=== PATIENT | female | born 1950 | race Caucasian/White ===

== ENCOUNTER 2024-04-22 13:21 | Emergency (ER) | payer OTHER ==
[~2024-04-22] VITALS: Ht 160 cm; Wt 65.0 kg
[2024-04-22] MEDS: LIDOCAINE W/ EPINEPHRINE 2% INJ 20ML VIAL IJ ONE (13:45)
--- NOTE | 2024-04-22 14:02 | ED.PDOC ---
Shabnamt. trauma (HPI) HPI Comments 73 y.o female presents to the ED via EMS for an evaluation of a mechanical fall. EMS reports patient was at [employer], tripped over a sprinkler and fell on cement fab outside. Patient presents with a 6cm laceration to the right upper eyebrow and bilateral shoulder pain. Patient has no active bleeding, discharge, or numbness. Patient denies any LOC, headaches, nausea, vomiting or dizziness. Patient is not up to date with tetanus vaccine. Chief Complaint: Laceration Time Seen by MD: 13:35 Primary Care Provider: CARLOS ALBERTO Reviewed notes: Nurses Notes, L[employer] And Cranes Inspector Notes, Medications, Allergies Allergies: Coded Allergies: NO KNOWN ALLERGIES (Unverified , 08/09/15) Information Source: Patient, Relative (Child) Mode of Arrival: EMS Severity: Moderate Timing: Hours Duration: Since onset Location: (L) Shoulder, (R) Shoulder Location of laceration: Face Mechanism: Fall Associated signs and symtoms: Other Past Medical History PAST MEDICAL HISTORY: Denies Surgical History: Denies all surgeries CONTACT CENTER ANALYST History: No Pertinent CONTACT CENTER ANALYST History Family History Family History: Unknown Social History Smoker: Non-Smoker Alcohol: Denies ETOH Use Drugs: Denies Drug Use Lives In: Home Constitutional: denies: chills, diaphoresis, fatigue, fever, malaise, sweats, weakness, others EENTM: denies: blurred vision, double vision, ear bleeding, ear discharge, ear drainage, ear pain, ear ringing, eye pain, eye redness, hearing loss, mouth pain, mouth swelling, nasal discharge, nose bleeding, nose congestion, nose pain, photophobia, tearing, throat pain, throat swelling, voice changes, others Respiratory: denies: cough, hemoptysis, orthopnea, SOB at rest, shortness of breath, SOB with excertion, stridor, wheezing, others Cardiovascular: denies: chest pain, dizzy spells, diaphoresis, Dyspnea on exertion, edema, irregular heart beat, left arm pain, lightheadedness, palpitations, PND, syncope, others Gastrointestinal: denies: abdomen distended, abdominal pain, blood streaked bowels, constipated, diarrhea, dysphagia, difficulty swallowing, hematemesis, melena, nausea, poor appetite, poor fluid intake, rectal bleeding, rectal pain, vomiting, others Genitourinary: denies: abnormal vagina bleeding, burning, dyspareunia, dysuria, flank pain, frequency, hematuria, incontinence, pain, , vagina discharge, urgency, others Neurological: denies: dizziness, fainting, headache, left sided numbness, left sided weakness, numbness, paresthesia, pre-existing deficit, right sided numbness, right sided weakness, seizure, speech problems, tingling, tremors, weakness, others Musculoskeletal: reports: others (bilateral upper shoulder blade pain ); denies: back pain, gout, joint pain, joint swelling, muscle pain, muscle stiffness, neck pain Integumetry: reports: laceration (right upper eyebrow ); denies: bruises, change in color, change in hair/nails, dryness, lesions, lumps, rash, wounds, o thers Allergic/Immunocompromised: denies: Difficulty Healing, Frequent Infections, Hives, Itching, others Hematologic/Lymphatic: denies: anemia, blood clots, easy bleeding, easy bruising, swollen glands, others Endocrine: denies: excessive hunger, excessive sweating, excessive thirst, excessive urination, flushing, intolerance to cold, intolerance to heat, unexplained weight gain, unexplained weight loss, others Psychiatric: denies: anxiety, bipolar disorder, depression, hopeless, panic disorder, schizophrenia, sleepless, suicidal, others All Other Systems: Reviewed and Negative Physical Exam General Appearance: No Apparent Distress, Normal HEENT: Normal ENT Inspection, Pharynx Normal, TMs Normal Neck: Full Range of Motion, Non-Tender, Normal, Normal Inspection Respiratory: Chest Non-Tender, Lungs Clear, No Accessory Muscle Use, No Respiratory Distress, Normal Breath Sounds Cardiovascular: No Edema, No JVD, No Murmur, No Gallop, Normal Peripheral Pulses, Regular Rate/Rhythm Breast Exam: Deferred Gastrointestinal: No Organomegaly, Non Tender, No Pulsatile Mass, Normal Bowel Sounds, Soft Genitalia: Deferred Pelvic: Deferred Rectal: Deferred Extremities: No calf tenderness, Normal capillary refill, Normal inspection, Normal range of motion, Non-tender, No pedal edema Musculoskeletal : Location: Bilateral Extremity Location: Shoulder (shoulder blade tenderness. NO deformity, swelling. ) Apperance: Normal Neurologic: Alert, technical developer II-XII nml as Tested, No Motor Deficits, Normal Affect, Normal Mood, No Sensory Deficits Cerebellar Function: Normal Reflexes: Normal Skin: Dry, Lacerations (6cm laceration full thickness to right upper eyebrow. ), Normal Color, Warm Lymphatic: No Adenopathy Was a procedure done? Was a procedure done?: Yes Sedation Sedation?: No Informed consent obtained: Yes Laceration Repair : Location left brow Length 6cm Anesthetic: Lidocaine Laceration Repair Prep: Saline, Betadine Laceration Repair Wound Comple: epidermis/dermis repair Laceration Repair: Number of sutures (14), Skin, Size (5), Nylon, Running Informed consent obtained: Yes Risks, benefits, and alternati: Yes Differential Diagnosis Multiple Trauma: Closed Head Injury, Fractures, Cerebral Contusion, Spine Injury, Abrasions, Contusion, Foreign Body, Hematoma, Laceration Neck Injury: Cervical Muscle Spasm, Cervical Sprain, Cervical Strain, Cervical Fracture, Spinal Cord Injury X-Ray, Labs, Meds, VS Vital Signs Date Time Temp Pulse Resp B/P (MAP) Pulse Ox O2 Delivery O2 Flow Rate FiO2 04/22/24 13:31 98.0 78 16 155/90 (111) 98 Current Medications Medications (Trade) Dose Ordered Sig/Chantal Route Start Time Stop Time Status Last Admin Diphtheria/ Tetanus/Acell Pertussis (Boostrix T-Dap) 0.5 ml ONCE ONCE IM 04/22/24 13:45 04/22/24 13:46 DC 04/22/24 15:45 Time of 1ST Reevaluation: 13:56 Reevaluation 1ST: Unchanged Time of 2ND Reevaluation: 15:58 Reevaluation 2ND: Improved Patient Education/Counseling: Diagnosis, Treatment, Prognosis, Need For Follow Up Family Education/Counseling: Diagnosis, Treatment, Prognosis, Need For Follow Up Additional Information Previous visit documents reviewed: None recently The following tests were ordered, and results were reviewed by me: CT head, CT cervical, Tetanus vaccine, laceration repair tray with lidocaine, and wound clean Additional Information was gathered from interviewing the following independent historians: Paramedics I reviewed and agreed with the following test results read by other providers: CT head and CT cervical I discussed treatment and results with medical personnel and: patient Departure 1 Departure Time of Disposition: 15:56 Impression: Primary Impression: Facial laceration Qualified Codes: S01.81XA - Laceration without foreign body of other part of head, initial encounter Additional Impression: Falling Disposition: HOME / SELF CARE / HOMELESS Condition: Good Additional Instructions: wound check in 2 days. suture removal in 5 days Discharged With: Self, Relative Critical Care Note Critical Care Time?: No Stability Stability form required: No Heart Score Heart Score: Heart Score Response (Comments) Value History N/A 0 EKG N/A 0 Age N/A 0 Risk Factors N/A 0 Troponin N/A 0 Total 0 I personally scribed for LISA MOBLEY MD ([email or web address]) on 04/22/24 at 14:02. Electronically submitted by Vivian Guo ([facility]). LISA MOBLEY MD Apr 22, 2024 14:02
--- NOTE | 2024-04-22 14:27 | DVH ---
EXAM: CT HEAD WITHOUT CONTRAST INDICATION: injury TECHNIQUE: CT of the head without intravenous contrast. Radiation Dose Information: CT Dose: CTDI volume is 56.02 mGy. Dose-length product is 990.3 mGy*cm The dose indicators for CT are the volume Computed Tomography (CT) Dose Index (CTDIvol) and the Dose Length Product (DLP), and are measured in units of mGy and mGy-cm, respectively. These indicators are not patient dose, but values generated from the CT scanner acquisition factors. The report includes radiation exposure data for exposures received during this examination. COMPARISON: None FINDINGS: There is no evidence of acute intracranial hemorrhage, extra-axial collection, mass effect, midline s hift, herniation or hydrocephalus. The ventricles, sulci and cisterns are age appropriate. The chicas-white differentiation is intact. Patchy periventricular and subcortical white matter hypoattenuation is nonspecific but may be related to small vessel ischemic disease. The visualized paranasal sinuses and mastoid air cells are clear. The surrounding soft tissues and osseous structures are unremarkable. IMPRESSION: 1. No acute intracranial hemorrhage 2. No CT findings of territorial ischemia. 3. No CT findings of displaced skull fracture
--- NOTE | 2024-04-22 14:37 | DVH ---
Procedure: CT CERVICAL WITHOUT CONTRAST 04/22/2024 01:57 PM Indication: injury Comparison Study: None. Technique: Axial images were obtained and reformatted in coronal and sagittal planes. All CT scans at this medical facility are performed using dose modulation techniques as appropriate t o a performed exam including the following: Automated exposure control was utilized; adjustment of th e MA and/or KV according to patient size; and use of iterative reconstruction technique. CT Dose: CTDI volume is 56 mGy. Dose-length product is 1422 mGy*cm FINDINGS: Bones: The vertebrae are normal in height. 2 mm grade 1 anterolisthesis of C2 on C3. Remote discal p lasty C4-C6 levels. Sclerotic endplate changes are noted C3-C7 levels. Mild discogenic endplate thea nges and posterior facet arthropathy at multiple levels noted with mild osseous neural foramina steno sis. Posterior facet arthropathy seen right C3-C6 levels. Lateral masses C1 and C2 are well aligned. The posterior facet joints are well aligned. Soft tissues: Paraspinal and prevertebral soft tissues are within normal limits. Multinodular goiter. IMPRESSION: 1. Straightening of normal lordosis that could be positional, reflect muscle spasm or pain. Correlate clinically. 2. No acute osseous abnormality. 3. Postoperative changes C3-C6.
[2024-04-22] MEDS: TETANUS-DIPTH-ACEL PERTUSSIS 0.5ML SYR Tdap IM ONE (15:45)
[2024-04-22] MEDS: NEOMYCIN-BACITRACIN-POLYM UNITDOSE PKG TOP OINT TOP ONE (16:47)
[2024-04-22 16:58] VITALS: BP 140/88; PULSE 80; RESP 16; TEMP 98.6; O2SAT 96
== END 2024-04-22 17:06 | disposition home or self-care (01) ==
LOC: ER 13:21 → EDBD 13:21 → ER 17:06
DX: S01.111A Laceration without foreign body of right eyelid and periocular area, initial encounter (principal); R51.9 Headache, unspecified; W01.0XXA Fall on same level from slipping, tripping and stumbling without subsequent striking against object, initial encounter; Y93.89 Activity, other specified; Y92.89 Other specified places as the place of occurrence of the external cause; Y99.8 Other external cause status
CPT/HCPCS: 12014; 70450; 72125; 90471; 90715